=== PATIENT | female | born 1970 | race Two or more races ===

== ENCOUNTER 2024-04-22 13:42 | Emergency (ER) | payer OTHER, MEDICAID ==
[~2024-04-22] VITALS: Ht 154.9 cm; Wt 95.4 kg
[2024-04-22 14:45] VITALS: BP 110/65; PULSE 99; RESP 19; TEMP 97.8; O2SAT 96
[2024-04-22 14:52] LABS: Urine Bacteria FEW /hpf (None Seen); Urine Blood Negative /uL (Negative); Urine Clarity Turbid (Clear); Urine Color Yellow (Yellow); Urine Hyaline Cast FEW /lpf (0 - 2); Urine Protein, UAD TRACE (Negative); Urine Specific Gravity 1.021 (1.001-1.035); Urine Urobilinogen 4 mg/dL (Negative); Urine WBC 4 /hpf (0 - 5); Urine pH 5.5 (5.0-9.0)
[2024-04-22] MEDS ORDERED: TRAM50TA2 PO (15:07)
== END 2024-04-22 15:28 | disposition home or self-care (01) ==
LOC: ER 13:42
DX: M54.50 Low back pain, unspecified (principal); G89.29 Other chronic pain; Z88.2 Allergy status to sulfonamides; W18.30XA Fall on same level, unspecified, initial encounter; Y93.89 Activity, other specified; Y92.89 Other specified places as the place of occurrence of the external cause; Y99.8 Other external cause status
CPT/HCPCS: 81001